=== PATIENT | male | born 1975 | race Hispanic/Latino ===

== ENCOUNTER 2023-03-07 05:18 | Emergency (ER) | payer OTHER ==
[2023-03-07 05:24] VITALS: BP 127/89; PULSE 88; RESP 16; O2SAT 98
[2023-03-07 05:41] LABS: RAPID GROUP A STREP negative (NEGATIVE)
[2023-03-07 05:45] LABS: SARS-CoV-2, RNA, NAAT NEGATIVE SARS CoV-2 (NEGATIVE)
[2023-03-07 05:50] LABS: INFLUENZA TYPE A Negative For Type A (NEGATIVE); INFLUENZA TYPE B Negative For Type B (NEGATIVE)
== END 2023-03-07 06:31 | disposition home or self-care (01) ==
LOC: EDH 05:18
DX: J02.8 Acute pharyngitis due to other specified organisms (principal); Z20.822 Contact with and (suspected) exposure to COVID-19
CPT/HCPCS: 99283; 87635; 87880; 87804 ×2; C9803